=== PATIENT | female | born 1945 | race Asian ===

== ENCOUNTER → 2017-08-08 | Outpatient (CLI) | payer MEDICARE, OTHER ==
[~2017-08-08] MED LIST: ACET-2902 PO; ALBU2.5V2 IH; AMLO5TAB66 PO; BISA10S PR; CARV6.2534 PO; ESOMEPRAZOLE; FLUT1BLS IH; LOVA20 PO; METF500T4 PO; ONDA4 PO; RIVA15T PO; SITA100 PO; ZOLP10TA7 PO
== END | disposition home or self-care (01) ==
LOC: RADPV 09:09
PROVIDERS: ATTEND Orthopaedic Surgery
DX: S72.142D Displaced intertrochanteric fracture of left femur, subsequent encounter for closed fracture with routine healing (principal); X58.XXXD Exposure to other specified factors, subsequent encounter
CPT/HCPCS: 73503